=== PATIENT | female | born 1980 | race American Indian/Alaskan Native ===

== ENCOUNTER 2019-07-02 08:55 | Emergency (ER) | payer SELFPAY ==
[2019-07-02 09:10] VITALS: BP 108/65
[2019-07-02 09:35] LABS: Basophils % (Auto) 0.3 % (0.0-1.8); Eosinophils # (Auto) 0.1 K/mm3 (0.0-0.4); Eosinophils % (Auto) 0.6 % (0.0-4.3); Hematocrit 34.9 % (30.3-42.9); Hemoglobin 11.8 gm/dl (10.1-14.3); Lymphocytes # (Auto) 0.9 K/mm3 (1.2-5.4); Mean Corpuscular HGB Conc 34 % (30-34); Mean Corpuscular Volume 98 fl (79-97); Monocytes # (Auto) 0.8 K/mm3 (0.0-0.8); Monocytes % (Auto) 6.2 % (0.0-7.3); Platelet Count 272 K/mm3 (140-440); Red Blood Count 3.57 M/mm3 (3.65-5.03); Red Cell Distribution Width 13.3 % (13.2-15.2)
[2019-07-02 09:44] LABS: Alanine Aminotransferase 14 units/L (7-56); Albumin 3.8 g/dL (3.9-5); BUN/Creatinine Ratio 20; Blood Urea Nitrogen 10 mg/dL (7-17); Calcium 8.7 mg/dL (8.4-10.2); Hemolysis Index 13
--- NOTE | 2019-07-02 10:00 | Emergency Department Report ---
ED General Adult HPI - General Chief complaint: Nausea/Vomiting/Diarrhea Stated complaint: N/V/DIZZINESS Time Seen by Provider: 07/02/19 09:58 Source: patient Mode of arrival: Wheelchair Limitations: No Limitations - History of Present Illness Initial comments: 38-year-old female states the nausea and vomiting after coming off a cruise ship him for another this morning. She flew to [place] in route to [place]. However, she was feeling weak and decided to come to the emergency department for evaluation. She denies diarrhea whatsoever. She states that she believes that she did have a fever. She is not complaining of difficulty in urinating or cough. Denies difficulty in breathing. She is not complaining of headache or abdominal pain. -: Gradual, days(s) Severity scale (0 -10): 0 Consistency: intermittent (nausea, vomiting, weakness) Improves with: none Worsens with: none Associated Symptoms: denies other symptoms, nausea/vomiting, weakness Treatments Prior to Arrival: none - Related Data Previous Rx's Medication Instructions Recorded Last Taken Type Ondansetron [Zofran Odt] 4 mg PO Q8HR PRN #7 tab.rapdis 07/02/19 Unknown Rx Allergies Allergy/AdvReac Type Severity Reaction Status Date / Time No Known Allergies Allergy Verified 07/02/19 09:02 ED Review of Systems ROS: Stated complaint: N/V/DIZZINESS Other details as noted in HPI Constitutional: weakness. denies: chills, fever Eyes: denies: eye pain, eye discharge, vision change ENT: denies: ear pain, throat pain Respiratory: denies: cough, shortness of breath, wheezing Cardiovascular: denies: chest pain, palpitations Endocrine: no symptoms reported Gastrointestinal: nausea, vomiting. denies: abdominal pain, diarrhea Genitourinary: other (last menses . States had 2 periods in May). denies: urgency, dysuria, discharge Musculoskeletal: denies: back pain, joint swelling, arthralgia Skin: denies: rash, lesions Neurological: denies: weakness, numbness, paresthesias, abnormal gait, vertigo Psychiatric: denies: anxiety, depression Hematological/Lymphatic: denies: easy bleeding, easy bruising ED Past Medical Hx - Past Medical History Previous Medical History?: Yes Hx Psychiatric Treatment: (anxiety) - Surgical History Past Surgical History?: Yes Additional Surgical History: ovarian cyst removal - Social History Smoking Status: Never Smoker Substance Use Type: None - Medications Home Medications: Home Medications Medication Instructions Recorded Confirmed Last Taken Type Ondansetron [Zofran Odt] 4 mg PO Q8HR PRN #7 tab.raydis 07/02/19 Unknown Rx ED Physical Exam - General Limitations: No Limitations General appearance: alert, in no apparent distress - Head Head exam: Present: atraumatic, normocephalic - Eye Eye exam: Present: normal appearance. Absent: scleral icterus - ENT ENT exam: Present: mucous membranes moist - Neck Neck exam: Present: normal inspection. Absent: tenderness, meningismus - Respiratory Respiratory exam: Present: normal lung sounds bilaterally. Absent: respiratory distress - Cardiovascular Cardiovascular Exam: Present: regular rate, normal rhythm. Absent: systolic murmur, diastolic murmur, rubs, gallop - GI/Abdominal GI/Abdominal exam: Present: soft, normal bowel sounds. Absent: distended, tenderness, guarding, rebound, rigid - Extremities Exam Extremities exam: Present: normal inspection, full ROM, normal capillary refill. Absent: tenderness, pedal edema, joint swelling, calf tenderness - Back Exam Back exam: Present: normal inspection - Neurological Exam Neurological exam: Present: alert, oriented X3, CN II-XII intact. Absent: motor sensory deficit - Psychiatric Psychiatric exam: Present: normal mood, flat affect - Skin Skin exam: Present: warm, dry, intact, normal color. Absent: rash ED Course Vital Signs 07/02/19 09:08 Temperature 98.8 F Pulse Rate 91 H Respiratory 18 Rate Blood Pressure 108/65 [Right] O2 Sat by Pulse 99 Oximetry - Reevaluation(s) Reevaluation #1: Patient states symptoms have improved. She states that she is hungry now and desires discharge. She looks better hydrated and nontoxic. 07/02/19 12:31 ED Medical Decision Making - Lab Data Result diagrams: 07/02/19 09:12 07/02/19 09:12 Laboratory Results - last 24 hr 07/02/19 07/02/19 09:12 09:12 WBC 12.9 H RBC 3.57 L Hgb 11.8 Hct 34.9 MCV 98 H MCH 33 H MCHC 34 RDW 13.3 Plt Count 272 Lymph % (Auto) 7.0 L [place] % (Auto) 6.2 Eos % (Auto) 0.6 Baso % (Auto) 0.3 Lymph # 0.9 L [place] # 0.8 Eos # 0.1 Baso # 0.0 Seg Neutrophils % 85.9 H Seg Neutrophils # 11.0 H Sodium 137 Potassium 3.9 Chloride 104.2 Carbon Dioxide 19 L Anion Gap 18 BUN 10 Creatinine 0.5 L Estimated GFR > 60 BUN/Creatinine Ratio 20 Glucose 94 Calcium 8.7 Total Bilirubin 0.40 AST 19 ALT 14 Alkaline Phosphatase 60 Total Protein 7.0 Albumin 3.8 L Albumin/Globulin Ratio 1.2 Critical care attestation.: If time is entered above; I have spent that time in minutes in the direct care of this critically ill patient, excluding procedure time. ED Disposition Clinical Impression: Viral syndrome, Dehydration Disposition: - TO HOME OR SELFCARE Is pt being admited?: No Does the pt Need Aspirin: No Condition: Stable Instructions: Viral Syndrome (ED), Dehydration (ED) Additional Instructions: Increase fluids, Tylenol as needed. Rest. Follow-up with your primary care physician. Prescriptions: Ondansetron [Zofran Odt] 4 mg PO Q8HR PRN #7 tab.rapdis PRN Reason: Nausea Referrals: PRIMARY CARE, [Primary Care Provider] - 24 Hours Time of Disposition: 12:32
[2019-07-02] MEDS ORDERED: ONDANSETRON 4 MG/2 ML INJ IV ONE (10:04)
[2019-07-02] MEDS ORDERED: SODIUM CHLORIDE 0.9% 1000 ML 1,000 ML IV ONE (10:04)
[2019-07-02 10:30] LABS: Bacteria,Urine 2+ /HPF (Negative); Bilirubin,Urine NEG (Negative); Blood,Urine SM (Negative); Color,Urine Yellow (Yellow); Mucus,Urine FEW /HPF; Protein,Urine <15 mg/dL mg/dL (Negative); Urobilinogen,Urine < 2.0 mg/dL (<2.0)
== END 2019-07-02 12:58 | disposition home or self-care (01) ==
LOC: ED 08:55
DX: B34.9 Viral infection, unspecified (principal); E86.0 Dehydration; F41.9 Anxiety disorder, unspecified; Z98.890 Other specified postprocedural states
CPT/HCPCS: 36415; 80053; 81001; 84703; 85025; 96361; 96374; 99283; J2405; J7030